=== PATIENT | female | born 1990 | race Caucasian/White ===

== ENCOUNTER → 2019-10-23 12:55 | Outpatient (CLI) | payer OTHER, SELFPAY ==
--- NOTE | ~2019-10-23 | US_ITS ---
EXAMINATION: US OB <= 14 weeks fetus DATE: 10/23/2019 13:34 INDICATION: First trimester dating TECHNIQUE: Real-time pelvic transabdominal and transvaginal ultrasound was performed. COMPARISON: None. FINDINGS: The uterus measures 11.2 x 6.7 x 6.9 cm. There is an intrauterine gestational sac. A yolk sac is identified. heart motion is identified measuring 155 beats per minute (bpm) by M-mode Do ppler. The crown rump length measures 1.7 cm , which correlates with an estimated gestational a ge of 8 weeks and 1 day(s) (+/-) 5 day(s). The right ovary measures 3.6 x 2.8 x 3.1 cm. The left ovary measures 3.7 x 2.5 x 2.4 cm. There is no free fluid in the pelvis. IMPRESSION: 1. Live intrauterine with an estimated gestational age of 8 weeks and 1 day(s) (+/-) 5 day( s) and an estimated delivery date of 06/02/2020. Reviewed, dictated and finalized at location A. SAMPLER IMPRESSION: 1. Live intrauterine with an estimated gestational age of 8 weeks and 1 day(s) (+/-) 5 day(s) and an estimated delivery date of 06/02/2020.
== END ==
PROVIDERS: Visit Provider Obstetrics & Gynecology
DX: O26.841 Uterine size-date discrepancy, first trimester (principal); Z3A.08 8 weeks gestation of pregnancy
CPT/HCPCS: 76801

== ENCOUNTER 2020-01-09 08:00 | Outpatient (CLI) | payer OTHER, SELFPAY ==
--- NOTE | ~2020-01-09 | US_ITS ---
EXAMINATION: US OB /maternal detail DATE: 01/09/2020 10:34 INDICATION: survey TECHNIQUE: Multiple obstetric sonographic images performed. FINDINGS: Ultrasound There is a single living fetus in vertex presentation. The placenta is posterior without placenta pr evia. Amniotic fluid volume is subjectively normal. cardiac activity and movement is noted with a heart rate of 149 beats per minute. The following anatomy was identified as normal: 4 chamber heart 3 vessel cord cord insertion kidneys urinary bladder stomach diaphragm ventricles cisterna magna cerebellum The skin surface overlying the spine is not adequately visualized due to lie. The following biometric data were obtained: BPD: 47mm corresponds to gestational age 20 weeks 1 days. Head circumference: 171 mm corresponds to gestational age 19 weeks 5 days. Abdominal circumference: 147 mm corresponds to gestational age 20 weeks 0 days. Femur length: 30 mm corresponds to gestational age 19 weeks 2 days. Head circumference to abdominal circumference ratio: 1.16 (normal range for expected gestational age is 1.08-1.26). Estimated weight: 305 grams +/- 46 grams using Hadlock method. IMPRESSION: 1: Single living intrauterine with an estimated gestational age of 19weeks 2days by initial ultrasound measurements, with an EDC of 06/02/2020 in vertex presentation. Appropriate interval growth. 2. Limited survey for evaluation of the spine due to lie. The remainder of the survey is layton l. Reviewed, dictated and finalized at location A. IMPRESSION: 1: Single living intrauterine with an estimated gestational age of 19 weeks 2days by initial ultrasound measurements, with an EDC of 06/02/2020 in digna ethan presentation. Appropriate interval growth. 2. Limited survey for evaluation of the spine due to lie. The remainder of the survey is normal.
== END 2020-01-09 08:01 | disposition home or self-care (01) ==
PROVIDERS: Visit Provider Obstetrics & Gynecology
DX: Z36.89 Encounter for other specified antenatal screening (principal)
CPT/HCPCS: 76805

== ENCOUNTER → 2020-03-04 07:48 | Outpatient (CLI) | payer OTHER, SELFPAY ==
--- NOTE | ~2020-03-04 | US_ITS ---
EXAMINATION: US OB limited EXAM DATE: 03/04/2020 08:08 INDICATION: Follow-up spine anatomy. 2nd trimester. TECHNIQUE: Pelvic obstetrical transabdominal sonogram was performed by a technologist. There are mu ltiple grayscale and Doppler images available for interpretation. Comparison is made to prior examina tion from 01/09/2020. FINDINGS: There is a single fetus identified in vertex presentation with a heart rate of 148 beats pe r minute. The placenta is located in the posterior position. There is no sonographic evidence of ret roplacental hemorrhage identified. There is subjectively expected amount of amniotic fluid. cervical thoracic lumbar spine and sacrum are sonographically normal. This completes the anatom ic survey. IMPRESSION: 1. Single fetus in vertex presentation with heart rate 148 beats per minute. 2. Sonographically normal spine. Reviewed, dictated and finalized at location B.
== END ==
PROVIDERS: Visit Provider Obstetrics & Gynecology
DX: Z36.9 Encounter for antenatal screening, unspecified (principal); Z3A.00 Weeks of gestation of pregnancy not specified
CPT/HCPCS: 76815

== ENCOUNTER 2020-05-24 07:05 | Outpatient (CLI) | payer SELFPAY ==
[2020-05-24 07:18] LABS: Hematocrit 28.6 % (37.0-47.0); Hemoglobin 8.7 g/dL (12.0-15.0); Mean Corpuscular HGB Conc 30.4 g/dl (32-36); Mean Corpuscular Hemoglobin 22.5 pg (26-34); Mean Corpuscular Volume 74.1 fl (80-100); Mean Platelet Volume 10.6 fl (7.4-10.4); Platelet Count Result 189 k/mm3 (150-375); Red Blood Count 3.86 M/mm3 (4.2-5.4); Red Cell Distribution Width 17.7 % (11.5-14.5); White Blood Count 9.5 K/mm3 (4.5-10.0)
[2020-05-25 10:52] LABS: Rapid Plasma Reagin Non-Reactive (NonReactive)
== END 2020-05-24 07:06 | disposition home or self-care (01) ==
PROVIDERS: Visit Provider Obstetrics & Gynecology
DX: Z34.93 Encounter for supervision of normal pregnancy, unspecified, third trimester (principal); Z3A.00 Weeks of gestation of pregnancy not specified
CPT/HCPCS: 36415; 85027; 86592; 86850; 86900; 86901

== ENCOUNTER 2020-05-25 21:23 | Inpatient (IN) | payer OTHER, SELFPAY ==
--- NOTE | 2020-05-13 13:11 | PC.NURSE ---
VERIFIED WITH OR SCHEDULE AND PATIENT--C/S ON 05/26/20 AT 0730 PATIENT GIVEN REQUISITION FOR LAB DRAW ON 05/25/20
[2020-05-25 22:52] VITALS: BP 92/65; PULSE 76
[2020-05-25 22:53] VITALS: BMI 32.2
--- NOTE | 2020-05-25 22:57 | LDADM ---
This patient, Yumiko Rueda, was admitted to OB Post 115 on 05/25/20 at 21:23. Plans for labor, pain management and were discussed with patient. Patient/family oriented to hospital policies and general routines including ID bracelet, bed and alarms, visiting hours, pain management, procedures, bathroom and other care routines, personal items, smoking policy, room service/diet and guest tray routines, infant security routines, and visiting hours. Patient/Family are encouraged to report perceived risks to care and to ask questions if they do not understand what they are told or what they should do. See OBIX for further documentation.
[2020-05-25] MEDS: LACTATED RINGERS 1,000 ML 125 ML IV CONT (23:07)
[2020-05-26] VITALS (63 sets, daily range): BP systolic 70–117; BP diastolic 41–80; PULSE 47–92; RESP 12–18; TEMP 36.1–36.9; O2SAT 95–100
[2020-05-26] MEDS: LACTATED RINGERS 1,000 ML 125 ML IV CONT (06:45)
--- NOTE | 2020-05-26 07:01 | WPDANESEPPF ---
Anes - Initial Pre Proc Eval Procedure: Operation Date: 05/26/20 07:30 Proposed Procedures p Repeat Section - David Downs MD Date/Time: 05/26/20 07:01 Surgeon: David Downs MD Pre Op Diagnosis: Contractions Patient Data Age: 29 Gender: F Height: 5 ft 2 in Weight: 80 kg Last Vital Signs Temp 36.9 C 05/26/20 03:12 Pulse 83 05/26/20 06:50 BP 96/63 L 05/26/20 06:50 Allergies Allergy/AdvReac Type Severity Reaction Status Date / Time No Known Allergies Allergy Verified 05/13/20 12:51 Home Medications Medication Instructions Recorded Confirmed Type PNV cmb#95-ferrous fumarate-FA 1 tablet PO DAILY 05/13/20 05/13/20 History [] omeprazole magnesium [Prilosec OTC] 20 mg PO BID 05/13/20 05/13/20 History ondansetron HCl [Zofran] 4 mg PO Q6H 05/13/20 05/13/20 History Patient hx anesthesia problems: post op nausea/vomiting and other (shivering nausea vomitting) Family hx anesthesia problems: none PMFSH Past Medical History Medical History GERD (gastroesophageal reflux disease) Family History Family History Mother Uterine cancer Father Ulcerative colitis Sibling Factor 5 Leiden mutation, heterozygous Social History Social History Smoking status: Never smoker Substance use: never Spiritual care concerns: No Anes - Eval Final PreProcedure Day of Procedure 05/26/20 07:01 Patient weight: overweight Heart: regular rate and rhythm Lungs: clear to auscultation Airway: Mallampati scale class II Neurological: alert and oriented Last oral intake: >/= 8 hours ASA classification: II Emergent: no Anesthetic plan: proceed Anesthesia type and monitoring: regional spinal and standard monitoring Informed Consent: The patient's anesthetic plan and its attendant risks and benefits were discussed with the patient/family/POA. Questions were solicited and answers provided to the satisfaction of the patient/family/POA.
--- NOTE | 2020-05-26 07:26 | PM.IMHP ---
H&P: HPI History of Present Illness Date/Time: 05/26/20 07:26 Chief complaint: Contractions Narrative: Yumiko Rueda is a 29 year old female @ 39 weeks by first trimester ultrasound EDC 06/02/20. Patient is scheduled for a repeat csection. Patient complicated by repeat csection x 2. [facility] Past Medical History Medical History GERD (gastroesophageal reflux disease) Family History Family History Mother Uterine cancer Father Ulcerative colitis Sibling Factor 5 Leiden mutation, heterozygous Social History Social History Smoking status: Never smoker Substance use: never Spiritual care concerns: No Meds Home Medications and Allergies Home Medications Medication Instructions Recorded Confirmed Type PNV cmb#95-ferrous fumarate-FA 1 tablet PO DAILY 05/13/20 05/13/20 History [] omeprazole magnesium [Prilosec OTC] 20 mg PO BID 05/13/20 05/13/20 History ondansetron HCl [Zofran] 4 mg PO Q6H 05/13/20 05/13/20 History Allergies Allergy/AdvReac Type Severity Reaction Status Date / Time No Known Allergies Allergy Verified 05/13/20 12:51 Vital Signs Vital Signs - 24 hr 05/25/20 22:52 05/26/20 03:08 05/26/20 03:09 Temperature Pulse Rate 76 76 68 Blood Pressure 92/65 L 88/51 L 86/47 L 05/26/20 03:10 05/26/20 03:12 05/26/20 06:50 Temperature 36.9 C Pulse Rate 71 83 Blood Pressure 99/68 L 96/63 L Exam Const: General: no acute distress Resp: Auscultation: clear to auscultation bilaterally Cardio: Rate: regular rate Rhythm: regular rhythm GI: GI Palp: Yes Soft to palpation Other: gravid fundal height 39 Assessment and Plan Additional Plan LTCS- patient scheduled for a repeat csection. Risk and benefits reviewed with patient in detail.
[2020-05-26] MEDS: ceFAZolin 2 GM/D5W 50 ML 2 GM/50 ML BAG IVPB (07:32)
[2020-05-26] MEDS: OXYTOCIN 30 UNITS/NS 500 ML 30 UNITS/500 ML BAG 125 UNITS IV CONT (09:10)
[2020-05-26] MEDS: KETOROLAC 30 MG/ML VIAL (*BKC) IV PUSH (09:39)
[2020-05-26] MEDS: MORPHINE SULFATE (*CRX) 2 MG/ML INJ 3 MG IV PUSH ×2 (10:12→10:30)
[2020-05-26] MEDS: SIMETHICONE 80 MG TAB.CHEW PO ×2 (10:45→12:53)
--- NOTE | 2020-05-26 10:59 | PC.NURSE ---
Patient transferred to post room #284 per stretcher from labor and delivery. Support person present. Oriented to unit, room, information board, rooming in, admission packet and security measures. Patient verbalizes understanding.
[2020-05-26] MEDS: HYDROcodone/acetaminophen (*CRX) 5-325 MG TABLET 1 TAB PO ×4 (12:56→23:30)
[2020-05-26] MEDS: DEXTROSE 5%/0.45% SOD CHL 1,000 ML 125 ML IV CONT (13:39)
[2020-05-26] MEDS: POLYSACCHARIDE IRON COMPLEX 150 MG CAPSULE PO (16:30)
[2020-05-26] MEDS: DOCUSATE SODIUM 100 MG CAPSULE PO (16:30)
--- NOTE | 2020-05-26 17:40 | PM.PROC ---
Procedure Note - Detailed Date of procedure: 05/26/20 Pre-op diagnosis: Contractions repeat csection Post-op diagnosis: same Procedure performed: repeat csection Description of procedure: The patient was taken to the operating room with IV running. She was prepared and draped in a normal sterile fashion after a spinal anesthesia was performed. The patient was taped placed in the leftward tilt. A Pfannenstiel skin incision was made with scalpel carried down to the underlying layer of fascia. This fascial incision was excised in the midline and extended bilaterally with Mccormick scissors. The anterior portion of the fascia was grasped with Curtis clamps elevated and dissected off the rectus muscles. The inferior aspect of the incision was grasped with clamps elevated dissected off the rectus muscles. The rectus muscles were in the midline peritoneum was entered bluntly. And the lower uterine segment was noted a bladder blade was inserted sickle uterine peritoneum was grasped with peons and sharply Metzenbaum scissors bladder blade was created. A transverse incision was made with the scalpel this incision was then extended bluntly. The head was delivered with vacuum no pop offs with 1 pull. The remainder of the fetus delivered cord was clamped and cut and the fetus was handed off to the waiting nurse. Cord blood was obtained for glasses were obtained. The placenta was delivered spontaneously. The uterus is exteriorized and cleared of all clots and debris. The uterine incision was then closed with 0 Monocryl in a running locked fashion. Second layer the same suture was used to imbricate this incision. Left corner of uterine incision continued to bleed 4 figure of eight stiches were placed with out success. an O leary stitch was place with O monocry for hemostasis. The uterine bleeding was then monitored for five minutes. Uterus was returned to the abdomen the gutters were irrigated and cleared of all clot and debris uterine incision was hemostatic. The muscles were examined hemostasis noted the fascia was closed with Koul Vicryl in a running fashion the subcutaneous tissue was irrigated and closed with 3 0 plain gut and the skin was closed with 0 Vicryl on a Glenn needle sponge lap and needle counts were correct x2 patient tolerated procedure well patient received 2 g Ancef prior to skin incision. Anesthesia: spinal Surgeon: David Downs MD Estimated blood loss (mL): 315 Drains: Yes Packing: No Pathology: none sent Complications: None Condition: stable Disposition: observation Findings: no left tube noted.
[2020-05-26] MEDS: PANTOPRAZOLE 40 MG TABLET PO (19:25)
[2020-05-26] MEDS: IBUPROFEN 600 MG TABLET PO (19:25)
[2020-05-26] MEDS: diphenhydrAMINE HCl INJ 50 MG/ML VIAL 25 MG IV PUSH ×2 (19:31→23:30)
[2020-05-27] MEDS: IBUPROFEN 600 MG TABLET PO ×4 (03:35→23:21)
[2020-05-27] MEDS: HYDROcodone/acetaminophen (*CRX) 5-325 MG TABLET 1 TAB PO (03:35)
[2020-05-27 03:50] VITALS: BP 91/60; PULSE 77; RESP 16; TEMP 36.7
[2020-05-27] MEDS: SIMETHICONE 80 MG TAB.CHEW PO ×4 (05:00→20:26)
[2020-05-27 05:01] LABS: Basophils Percent Auto 0.3 % (0.2-1.2); Eosinophils Absolute Auto 0.1 K/mm3 (0-0.3); Eosinophils Percent Auto 1.1 % (0-4.4); Hematocrit 26.3 % (37.0-47.0); Hemoglobin 7.8 g/dL (12.0-15.0); Immature Granulocyte Absolute 0.09 K/mm3 (0.00-0.031); Immature Granulocyte Percent A 0.8 % (0-0.5); Lymphocytes Absolute Auto 1.55 K/mm3 (0.9-3.2); Lymphocytes Percent Auto 13.3 % (18.3-44.2); Mean Corpuscular HGB Conc 29.7 g/dl (32-36); Mean Corpuscular Hemoglobin 22.6 pg (26-34); Mean Corpuscular Volume 76.2 fl (80-100); Mean Platelet Volume 11.7 fl (7.4-10.4); Monocytes Absolute Auto 0.7 K/mm3 (0.1-0.6); Monocytes Percent Auto 5.6 % (2.6-8.5); Neutrophils Absolute Auto 9.2 K/mm3 (1.3-6.7); Neutrophils Percent Auto 78.9 % (45.5-73.1); Platelet Count Result 157 k/mm3 (150-375); Red Blood Count 3.45 M/mm3 (4.2-5.4); Red Cell Distribution Width 17.6 % (11.5-14.5); White Blood Count 11.7 K/mm3 (4.5-10.0)
[2020-05-27 05:17] LABS: Anion Gap 5 mmol/L (8-16); Blood Urea Nitrogen 6 mg/dL (7-17); Calcium 7.8 mg/dL (8.4-10.2); Carbon Dioxide 24 mmol/L (22-30); Chloride 106 mmol/L (98-107); Estimated CRCL calculation 99 ml/min; Estimated Glomerular Filt Rate > 60; Glucose 90 mg/dL (65-105); Potassium 3.6 mmol/L (3.4-5.0); Sodium 135 mmol/L (137-145)
[2020-05-27 05:25] LABS: Hypochromasia 1+ (NORMAL); Microcytosis 2+ (NORMAL); Platelet Estimate Adequate (Adequate)
[2020-05-27] MEDS: HYDROcodone/acetaminophen (*CRX) 10-325 MG TABLET 1 TAB PO ×6 (07:26→23:21)
[2020-05-27] MEDS: POLYSACCHARIDE IRON COMPLEX 150 MG CAPSULE PO ×2 (07:26→17:31)
[2020-05-27] MEDS: DOCUSATE SODIUM 100 MG CAPSULE PO ×2 (07:27→17:30)
[2020-05-27] MEDS: MULTIVIT/MIN/PREN/FOL AC/IRON TABLET 1 TAB PO (07:27)
--- NOTE | 2020-05-27 07:41 | WPDANLDNPN2 ---
Anes-Prog Note L&D-Neuraxial Date/Time: 05/27/20 07:41 Neuraxial medications: intrathecal PF morphine Opiod-related complaints: none Patient feedback: Patient satisfied with post-operative pain management.
--- NOTE | 2020-05-27 07:41 | WPDANLDPN2 ---
Anes-Prog Note L&D Date/Time: 05/27/20 07:41 Comfortable throughout: section Neuraxial method: spinal Epidural/Spinal procedure site: clean & non-tender Neuro status: Neuro function grossly intact. Cardiovascular status: normal Respiratory status: normal Airway patency: baseline Mental status: baseline Post-Op hydration status: normal Vital Signs: Last Vital Signs Temp 36.7 C 05/27/20 03:50 Pulse 77 05/27/20 03:50 Resp 16 05/27/20 03:50 BP 91/60 L 05/27/20 03:50 Pulse Ox 100 05/26/20 15:00 Pain score (VAS): 09/18 I/O: Intake & Output 05/26/20 05/26/20 05/27/20 15:59 23:59 07:59 Intake Total 1000 2000 800 Output Total 415 1250 1200 Balance 585 750 -400 Post-procedural complaints: none Patient feedback: Patient satisfied with anesthetic care.
[2020-05-27 08:00] VITALS: BP 92/57; PULSE 59; RESP 16; TEMP 37.1; O2SAT 99
--- NOTE | 2020-05-27 10:45 | P.PNOB_ITS ---
OB - PN: Subj Subjective Date/time seen: 05/27/20 10:45 S: doing well today no complaints ambulating well pain controlled voiding well OB - PN: Obj Data Labs CBC & Chem 7: 05/27/20 03:39 05/27/20 03:39 Labs: Laboratory Results - last 24 hr 05/27/20 05/27/20 03:39 03:39 WBC 11.7 H RBC 3.45 L Hgb 7.8 L Hct 26.3 L MCV 76.2 L MCH 22.6 L MCHC 29.7 L RDW 17.6 H Plt Count 157 MPV 11.7 H Immature Gran % (Auto) 0.8 H Neut % (Auto) 78.9 H Lymph % (Auto) 13.3 L [place] % (Auto) 5.6 Eos % (Auto) 1.1 Baso % (Auto) 0.3 Lymph # (Auto) 1.55 [place] # (Auto) 0.7 H Eos # (Auto) 0.1 Baso # (Auto) 0.0 Abs Immat Gran (auto) 0.09 H Absolute Neuts (auto) 9.2 H Absolute Nucleated RBC 0.0 Nucleated RBC % 0.0 Platelet Estimate Adequate Hypochromasia 1+ Microcytosis 2+ Sodium 135 L Potassium 3.6 Chloride 106 Carbon Dioxide 24 Anion Gap 5 L BUN 6 L Creatinine 0.70 Estim Creat Clear Calc 99 Estimated GFR > 60 Glucose 90 Calcium 7.8 L OB - PN A/P Assessment and Plan (1) H/O: : Code(s): Z98.891 - History of uterine scar from previous surgery Status: Acute Assessment and Plan: continue with pp care. anemia continue with iron supplements. Time Spent With Patient Time: Total time spent is greater than 50% in coordination of care (as documented) at patient's floor/unit and/or counseling patient: Exam Narrative: Exam Narrative: incision c/d/i, ff below umbilicus
--- NOTE | 2020-05-27 13:10 | PC.NURSE ---
Upon entering mother has to breast. is latched nursing eagerly. Mother reports is eagerly waking and feeding without issue, this is the 3rd child to breastfeed. Reviewed positioning/alignment in cross cradle, holding breast in U hold and guided asymmetrical latch on. Discussed rational for each. Infant nursed sleepily with bursts of rhythmic draws and occasional swallowing noted. Reviewed signs of a correct latch, effective nursing and suck swallow ratio. Infant was able to maintain latch without discomfort to mother. Nipple care reviewed. Suggested to stimulate to keep infant awake and nursing effectively for increased intake and to assist maintaining deep latch. Demonstrated how to adjust latch more deeply while feeding. Demonstrated stimulation techniques to wake infant for feeding. Reviewed infant feeding cues, frequencies, duration of feedings, feeding elimination flow sheet, and signs of adequate intake. Instructed mother to call out for RN assistance if she is unable to latch for feeding or she has discomfort with nursing. Instructed feeding should be initiated three hours from start of last feeding or if feeding cues are noted before. Mother voiced understanding of information shared. Mother is feeding as required and waking infant to feed if needed. has had at least 8 effective feedings in the past 24 hours, and is currently meeting outcomes for weight, output, jaundice and feeding frequencies. Mother states she feels confident to continue effective at home. Reviewed transition to breast milk, signs of adequate intake, and engorgement/relief. Instructed to call ICP if intake/output less than required. Reviewed regular medications mother is taking. Information provided per [place]. Reviewed community resources on the [facility] website and in the Mom/Baby guide. Information on outpatient services provided. Mother has no further questions at this time.
[2020-05-27 20:40] VITALS: BP 91/58; PULSE 84; RESP 18; TEMP 36.6; O2SAT 100
--- NOTE | 2020-05-27 20:40 | PC.NURSE ---
Patient to view the discharge video Mother & Baby Care, The First Two Weeks online. Patient was given the opportunity and encouraged to ask questions. Patient verbalized understanding of information shared and has been given the mother/baby guide for home reference.
[2020-05-28] MEDS: HYDROcodone/acetaminophen (*CRX) 10-325 MG TABLET 1 TAB PO (03:25)
[2020-05-28] MEDS: SIMETHICONE 80 MG TAB.CHEW PO ×2 (03:25→08:41)
[2020-05-28 08:00] VITALS: BP 105/56; PULSE 84; RESP 20; TEMP 37.3; O2SAT 100
[2020-05-28] MEDS: IBUPROFEN 600 MG TABLET PO (08:40)
[2020-05-28] MEDS: DOCUSATE SODIUM 100 MG CAPSULE PO (08:41)
[2020-05-28] MEDS: POLYSACCHARIDE IRON COMPLEX 150 MG CAPSULE PO (08:41)
[2020-05-28] MEDS: HYDROcodone/acetaminophen (*CRX) 5-325 MG TABLET 1 TAB PO ×2 (08:41→12:49)
[2020-05-28] MEDS: PANTOPRAZOLE 40 MG TABLET PO (08:42)
[2020-05-28] MEDS: MULTIVIT/MIN/PREN/FOL AC/IRON TABLET 1 TAB PO (08:42)
--- NOTE | 2020-05-28 10:19 | PM.OBPNVD ---
OB - PN: Subj Subjective Date/time seen: 05/28/20 10:19 doing well no complaints ambulating well OB - PN: Obj Data Labs CBC & Chem 7: 05/27/20 03:39 05/27/20 03:39 OB - PN A/P Assessment and Plan (1) H/O: : Code(s): Z98.891 - History of uterine scar from previous surgery Status: Acute Assessment and Plan: d/c home continue iron supplements Time Spent With Patient Time: Total time spent is greater than 50% in coordination of care (as documented) at patient's floor/unit and/or counseling patient: Exam GI: Other: incision c/d/i
--- NOTE | 2020-05-28 10:23 | PM.OBDSVD ---
DS: Admitting Diagnosis Admitting Diagnosis Admitting Diagnosis: Contractions OB - DS: Summary OB Procedures : Ultrasound OB Procedures Intrapartum: OB Procedures: : None Peripartum Data Procedures: Procedures Operation Date: 05/26/20 07:30 Actual Procedures Side Surgeon p Repeat Section David Downs MD Time Spent with Patient Time attestation: Total time spent providing and/or coordinating discharge services: Exam GI: GI Palp: Yes Soft to palpation Discharge Plan Discharge Attending physician on discharge: David Downs Discharging Clinician: David Downs Patient Disposition: Home, Self-Care Activity: may shower, may drive after 2 weeks and pelvic rest Diet: as tolerated Patient Instructions: Antibiotic Form Stand Alone Forms: General Discharge Information Follow-up/Referrals: David Downs MD [Physician] - Discharge Medications: New hydrocodone-acetaminophen 5-325 mg Tablet 1 tab PO Q3H PRN (Reason: Moderate Pain (4-6)) Qty: 30 RF: 0 ibuprofen 600 mg Tablet 600 mg PO Q6H PRN (Reason: Cramping) Qty: 60 RF: 0 Continued ondansetron HCl [Zofran] 4 mg Tablet 4 mg PO Q6H RF: 0 omeprazole magnesium [Prilosec OTC] 20 mg Tablet,Delayed Release (Dr/Ec) 20 mg PO BID RF: 0 PNV cmb#95-ferrous fumarate-FA [] 28 mg iron- 800 mcg Tablet 1 tablet PO DAILY RF: 0 Date of admission: 05/25/20 21:23 Primary Care Provider: PHYSICIAN,RECORDER HELPER SEISMOGRAPH Admitting Provider: David Downs Attending physician on admission: David Downs
--- NOTE | 2020-05-28 10:30 | PM.OBPRVD ---
OB - Delivery Note Procedure Delivery date: 05/26/20 Procedure: Procedures Operation Date: 05/26/20 07:30 Actual Procedures Side Surgeon p Repeat Section David Downs MD events: Previous Intrapartal events: None Induction method: none Delivery monitor: external FHT and external uterine Route of delivery: Estimated blood loss (mL): 315 Anesthesia type: Spinal Disposition: PACU Baby Date of : 05/26/20 Time of : 07:55 Weeks of gestation at delivery: 39 Infant gender: Female Weight (pounds): 8 Weight (ounces): 0 presentation: vertex Placenta delivery description: Spontaneous cord vessel description: 3 Vessels score one minute: 9 score five minutes: 9
--- NOTE | 2020-05-28 11:58 | PC.NURSE ---
Self care and infant care discharge instructions given including follow up visit date and time. Pt. verbalized understanding. No questions or concerns voiced.
[2020-05-30 09:15] VITALS: BP 108/71; PULSE 83; RESP 20; TEMP 37.2; O2SAT 99
== END 2020-05-28 13:04 | disposition home or self-care (01) | DRG 540 ==
LOC: ANHOBPP 22:25 → ANHLDR 05-26 08:20 → ANHOB2 05-26 11:03
PROVIDERS: Admitting Provider Obstetrics & Gynecology Gynecology; Visit Provider Obstetrics & Gynecology
PROC: 10D00Z1 Extraction of Products of Conception, Low, Open Approach (ICD-10-PCS; CPT 59514; principal; 2020-05-26 07:30)
DX: O34.211 Maternal care for low transverse scar from previous cesarean delivery (principal); Z37.0 Single live birth; Z3A.39 39 weeks gestation of pregnancy; O99.62 Diseases of the digestive system complicating childbirth; K21.9 Gastro-esophageal reflux disease without esophagitis
CPT/HCPCS: 36415; 80048; 85025; A9270; J0131; J0690; J1200; J1885; J2270; J2274; J2370; J2405; J2590; J7120